=== PATIENT | male | born 1965 | race Caucasian/White ===

== ENCOUNTER 2021-08-08 13:04 | Outpatient (REF) | payer MEDICARE, MEDICAID, SELFPAY ==
--- NOTE | ~2021-08-08 | CT_ITS ---
EXAMINATION: CT ANKLE WITHOUT CONTRAST, RIGHT CLINICAL INFORMATION: Right ankle fracture. COMPARISON: None. TECHNIQUE: Contiguous axial CT images of the right ankle were obtained without contrast. Multiplanar reformats were provided and reviewed. This CT examination was performed using dose optimization techniques as appropriate, variously including the following: *Automated exposure control *Adjustment of mA and/or kV according to patient size (this includes techniques or standardized protocols for targeted exams where dose is matched to indication/reason for exam; i.e. extremities or head) *Use of iterative reconstruction technique DOSE: 165 mGy-cm. FINDINGS: There is a displaced and comminuted distal fibular diametaphyseal fracture with a dominant oblique component and a resultant fracture gap measuring up to 1.0 cm. There is a resultant posterior butterfly fracture fragment measuring up to 7.3 cm in clinical dimension. The proximal fracture fragment is displaced anteriorly. Comminuted and displaced medial malleolar fracture with a dominant transverse component. There is lateral displacement of the proximal fracture fragment with cortical step-off measuring up to 0.8 cm along the articular surface. The largest medial malleolar fracture fragment measures up to 1.9 cm. Comminuted and displaced posterior malleolar fracture extending along the entirety of the posterior cortex and measuring up to 4.8 cm in ML dimension. This contacts the posterior articular surface where there is 0.6 cm of cortical step-off at the tibial plafond. There is lateral subluxation of the talar dome in relation to the tibial plafond with lateral joint space narrowing. No additional fracture. No joint space narrowing or marginal osteophytes. No concerning lytic or blastic osseous lesion. Tiny plantar and dorsal calcaneal enthesophytes. Prominent medial and lateral subcutaneous edema. No abnormal soft tissue mass or fluid collection. The visualized flexor and extensor tendons are grossly intact; however, evaluation is significantly limited on CT examination. CT/CT ankle RT wo con IMPRESSION: Comminuted and displaced trimalleolar fracture. The distal fibular fracture demonstrates a dominant oblique component with anterior displacement of the proximal fracture fragment. The medial malleolar fracture demonstrates a dominant transverse component with medial displacement of the proximal fracture fragment and approximately 0.8 cm cortical step-off along the articular surface. A posterior malleolar fractured measures up to 4.8 cm in ML dimension with approximately 0.6 cm of cortical step-off at the posterior tibial plafond. Associated lateral subluxation of the talar dome in relation to the tibial plafond.
== END 2021-08-08 13:05 | disposition home or self-care (01) ==
LOC: HO.CT 13:04
PROVIDERS: PCP Physician Assistant Medical; Visit Provider Physician Assistant Surgical
DX: S82.851D Displaced trimalleolar fracture of right lower leg, subsequent encounter for closed fracture with routine healing (principal)
CPT/HCPCS: 73700